=== PATIENT | male | born 1975 | race Caucasian/White ===

== ENCOUNTER 2020-12-09 11:11 | Emergency (ER) | payer OTHER ==
[~2020-12-09 11:11] MED LIST: NORCO 5-325 TA1 EACH PO; PENICILLIN V P500 MG PO
[2020-12-09] MEDS ORDERED: NAPROXEN500 MG PO (11:42)
[2020-12-09] MEDS ORDERED: AMOXICILLIN500 MG PO (11:42)
== END 2020-12-09 11:45 | disposition home or self-care (01) ==
LOC: FER 11:11
DX: K04.7 Periapical abscess without sinus (principal); I10 Essential (primary) hypertension; K03.81 Cracked tooth; K02.9 Dental caries, unspecified
CPT/HCPCS: 99282